=== PATIENT | male | born 1975 | race Caucasian/White ===

== ENCOUNTER → 2016-10-08 | Outpatient (CLI) | payer OTHER | END | disposition home or self-care (01) | LOC: RAD 10:31 | PROVIDERS: ATTEND Student in an Organized Health Care Education/Training Program | DX: M50.322 Other cervical disc degeneration at C5-C6 level (principal); M48.02 Spinal stenosis, cervical region | CPT/HCPCS: 72050 ==

== ENCOUNTER → 2016-12-02 | Outpatient (CLI) | payer OTHER | END | disposition home or self-care (01) | LOC: CFH 07:59 | PROVIDERS: ATTEND Student in an Organized Health Care Education/Training Program | DX: M50.322 Other cervical disc degeneration at C5-C6 level (principal); M50.222 Other cervical disc displacement at C5-C6 level; M48.02 Spinal stenosis, cervical region; M25.78 Osteophyte, vertebrae | CPT/HCPCS: 72141 ==